=== PATIENT | male | born 1970 | race Caucasian/White ===

== ENCOUNTER 2017-03-17 22:03 | Observation (INO) | payer BC ==
--- NOTE | 2017-03-17 23:22 | PDOC ---
History of Present Illness - History of Present Illness Initial Comments: 03/17/17 23:23 Mr. Harrell is a 46 yo male with a significant past medical history of Panic Attacks with chronic back pain from 2 bulging discs who presents to the emergency department complaining of chest tightness midline with previous sweating and nausea. The patient denies shortness of breath, headache and dizziness. Denies fever, chills, vomit, diarrhea and constipation. Denies dysuria, frequency, urgency and hematuria. Allergies: NKDA Past surgical history: Denies <Phillip Vela - Last Filed: 03/18/17 00:09> <Nehemiah Rod - Last Filed: 03/18/17 01:37> - General Chief Complaint: Pain Stated Complaint: CHEST PAIN Time Seen by Provider: 03/17/17 23:14 Past History - Past Medical History Psychiatric Problems: Yes (Anxiety) Other medical history: Herniated disc - Immunization History Immunization Up to Date: Yes - Suicide/Smoking/Psychosocial Hx Smoking History: Never smoked Have you smoked in the past 12 months: No Number of Cigarettes Smoked Daily: 0 Cigars Per Day: 0 Information on smoking cessation initiated: No Hx Alcohol Use: No Drug/Substance Use Hx: No Substance Use Type: None <Phillip Vela - Last Filed: 03/18/17 00:09> <Nehemiah Rod - Last Filed: 03/18/17 01:37> - Past Medical History Allergies/Adverse Reactions: Allergies Allergy/AdvReac Type Severity Reaction Status Date / Time No Known Allergies Allergy Verified 03/17/17 22:10 Home Medications: Ambulatory Orders Albuterol Sulfate Inhaler - [Ventolin HFA Inhaler -] 2 inh PO Q4H #1 inh Ibuprofen [Motrin -] 600 mg PO TID #21 tablet 06/14/14 Loratadine/Pseudoephedrine [Claritin-D 12 Hour Tab SA] 1 tab PO BID #14 tab.er.12h 06/14/14 Review of Systems - Review of Systems Comments:: 03/17/17 23:51 GENERAL/CONSTITUTIONAL: +Prior diaphoresis today. No fever or chills. No weakness. HEAD, EYES, EARS, NOSE AND THROAT: No change in vision. No ear pain or discharge. No sore throat. CARDIOVASCULAR: +Midline chest pain that feels "tight" like "an elephant is sitting on [his] chest" and 5/10 pain. RESPIRATORY: No cough, wheezing, or hemoptysis. GASTROINTESTINAL: +Nausea earlier today, No vomiting, diarrhea or constipation. GENITOURINARY: No dysuria, frequency, or change in urination. MUSCULOSKELETAL: No joint or muscle swelling or pain. No neck or back pain. SKIN: No rash NEUROLOGIC: No headache, vertigo, loss of consciousness, or change in strength/ sensation. ENDOCRINE: No increased thirst. No abnormal weight change HEMATOLOGIC/LYMPHATIC: No anemia, easy bleeding, or history of blood clots. ALLERGIC/IMMUNOLOGIC: No hives or skin allergy. <Phillip Vela - Last Filed: 03/18/17 00:09> *Physical Exam - Vital Signs Last Vital Signs Temp Pulse Resp BP Pulse Ox 98.7 F 63 18 143/78 98 03/17/17 22:10 03/17/17 22:10 03/17/17 22:10 03/17/17 22:10 03/17/17 22:10 - Physical Exam Comments: 03/17/17 23:51 GENERAL: Awake, alert, and fully oriented, in no acute distress HEAD: No signs of trauma, normocephalic, atraumatic EYES: PERRLA, EOMI, sclera anicteric, conjunctiva clear ENT: Auricles normal inspection, hearing grossly normal, nares patent, oropharynx clear without exudates. Moist mucosa NECK: Normal ROM, supple, no lymphadenopathy, JVD, or masses LUNGS: No distress, speaks full sentences, clear to auscultation bilaterally HEART: +Patient's chest tender to palpation midline. Regular rate and rhythm, normal S1 and S2, no murmurs, rubs or gallops, peripheral pulses normal and equal bilaterally. ABDOMEN: Soft, nontender, normoactive bowel sounds. No guarding, no rebound. No masses EXTREMITIES: Normal inspection, Normal range of motion, no edema. No clubbing or cyanosis. NEUROLOGICAL: Cranial nerves II through XII grossly intact. Normal speech, normal gait, no focal sensorimotor deficits SKIN: Warm, Dry, normal turgor, no rashes or lesions noted. <Phillip Vela - Last Filed: 03/18/17 00:09> - Vital Signs Last Vital Signs Temp Pulse Resp BP Pulse Ox 98.7 F 63 18 143/78 98 03/17/17 22:10 03/17/17 22:10 03/17/17 22:10 03/17/17 22:10 03/17/17 22:10 <MarcelNehemiah - Last Filed: 03/18/17 01:37> Heart Score/ECG Review - History History: Moderately suspicious - Electrocardiogram EKG: Normal - Age Age: 45-65 - Risk Factors Based on the list above the patient has:: No risk factors known - Troponin Troponin: </= normal limit - Score Heart Score - Total: 2 <Nehemiah Rod - Last Filed: 03/18/17 01:37> ED Treatment Course - LABORATORY CBC & Chemistry Diagram: 03/18/17 00:04 03/18/17 00:04 <Phillip Vela - Last Filed: 03/18/17 00:09> - LABORATORY CBC & Chemistry Diagram: 03/18/17 00:04 03/18/17 00:04 - ADDITIONAL ORDERS Additional order review: Laboratory Results 03/18/17 03/18/17 00:04 00:04 Sodium 139 Potassium 3.5 Chloride 103 Carbon Dioxide 27 Anion Gap 9 BUN 15 D Creatinine 0.8 Creat Clearance w eGFR > 60 Random Glucose 94 Calcium 8.4 L Total Bilirubin 0.3 D AST 28 D ALT 57 D Alkaline Phosphatase 68 Creatine Kinase 125 Troponin I < 0.02 Total Protein 7.5 Albumin 3.5 03/18/17 00:04 RBC 4.13 MCV 94.2 MCHC 34.2 RDW 13.7 MPV 8.2 Neutrophils % 55.7 Lymphocytes % 30.6 Monocytes % 10.3 H Eosinophils % 2.3 Basophils % 1.1 - RADIOLOGY Radiology Studies Ordered: Category Date Time Status CHEST X-RAY PORTABLE* [RAD] Stat Radiology 03/18/17 00:13 Taken - Medications Given in the ED: ED Medications Discontinued Medications Generic Name Dose Route Start Last Admin Trade Name Freq PRN Reason Stop Dose Admin Aspirin 325 mg 03/17/17 23:38 03/18/17 00:21 Asa - PO 03/17/17 23:39 325 mg ONCE ONE Administration Nitroglycerin 0.4 mg 03/17/17 23:38 03/18/17 00:20 Nitrostat - SL 03/17/17 23:39 0.4 mg ONCE ONE Administration Nitroglycerin 1 inch 03/18/17 00:31 03/18/17 00:57 Nitro-Bid 2% Paste - TD 03/18/17 00:32 1 inch ONCE ONE Administration <Nehemiah Rod - Last Filed: 03/18/17 01:37> Medical Decision Making - Medical Decision Making 03/18/17 00:09 Patient signed out to Dr. Rod for further care. <Phillip Vela - Last Filed: 03/18/17 00:09> *DC/Admit/Observation/Transfer <Phillip Vela - Last Filed: 03/18/17 00:09> - Discharge Dispostion Admit: Yes <Nehemiah Rod - Last Filed: 03/18/17 01:37> Diagnosis at time of Disposition: Chest pain Qualifiers: Chest pain type: unspecified Qualified Code(s): R07.9 - Chest pain, unspecified - Discharge Dispostion Condition at time of disposition: Fair - Referrals Referrals: Jas Pride [Primary Care Provider] -
[2017-03-17] MEDS ORDERED: NITROGLYCERIN SUBLINGUAL 1/150 0.4 MG TAB SL ONE (23:38)
[2017-03-17] MEDS ORDERED: ASPIRIN 325 MG TABLET PO ONE (23:38)
[2017-03-18 00:09] LABS: BASOPHIL 1.1 % (0-2.0); EOSINOPHIL 2.3 % (0-4.5); MCH 32.2 pg (25.7-33.7); MCHC 34.2 g/dl (32.0-35.9); MEAN CELL VOLUME 94.2 fl (80-96); MEAN PLT VOLUME 8.2 fl (7.5-11.1); NEUTROPHILS 55.7 % (42.8-82.8); PLATELET COUNT 281 K/MM3 (134-434); RDW 13.7 % (11.9-15.9); WHITE BLOOD COUNT 6.3 K/mm3 (4.0-10.0)
[2017-03-18] MEDS ORDERED: ASPIRIN 325 MG TABLET ONE (00:13)
[2017-03-18] MEDS ORDERED: NITROGLYCERIN SUBLINGUAL 1/150 0.4 MG TAB ONE (00:14)
[2017-03-18] MEDS ORDERED: NITROGLYCERIN 2% OINTMENT - 1GM PACKET TD ONE ×2 (00:31→00:51)
[2017-03-18 00:34] LABS: ALBUMIN 3.5 g/dl (3.4-5.0); ALK PHOS 68 U/L (45-117); ANION GAP 9 (8-16); BILIRUBIN,TOTAL 0.3 mg/dL (0.2-1.0); CALCIUM 8.4 mg/dL (8.5-10.1); CO2 27 mmol/L (21-32); CREATININE 0.8 mg/dL (0.7-1.3); GLUCOSE,RANDOM 94 mg/dL (74-106); SGOT/AST 28 U/L (15-37); SGPT/ALT 57 U/L (12-78); TOT PROT 7.5 g/dl (6.4-8.2)
[2017-03-18 00:36] LABS: CPK 125 IU/L (39-308); TROPONIN I < 0.02 ng/ml (0.00-0.05)
--- NOTE | 2017-03-18 01:04 | PDOC ---
Attending Attestation - Resident Resident Name: GeoffblaisemathewBenPhillip - ED Attending Attestation I have performed the following: I have examined & evaluated the patient, The case was reviewed & discussed with the resident, I agree w/resident's findings & plan, Exceptions are as noted - HPI HPI: 03/18/17 01:02 46-year-old male with history of panic attacks presents to the ER with atraumatic, nonpleuritic midsternal chest pain since earlier in the day. - Physicial Exam PE: 03/18/17 01:02 Patient is awake and alert, afebrile, nontoxic appearing, hemodynamically stable. CONSTITUTIONAL: Awake and alert; well-nourished; in no apparent distress HEAD: Normocephalic; atraumatic EYES: PERRL; EOM intact ENMT: External appears normal; normal oropharynx NECK: Supple; non-tender; no JVD CARD: Normal S1, S2; no murmurs, rubs, or gallops; + mild left parasternal tenderness to palpation which the patient states is different from his underlying symptoms; RESP: Normal chest excursion with respiration; breath sounds clear and equal bilaterally; no wheezes, rhonchi, or rales ABD: Soft, non-distended; non-tender; no palpable organomegaly, no palpable hernias EXT: Normal ROM in all four extremities; non-tender to palpation; distal pulses intact SKIN: Warm, dry, no rash NEURO: No focal neurological deficiencies. - Medical Decision Making 03/18/17 01:03 46-year-old male with no previous medical history presents to the ER with midsternal chest discomfort associated with dizziness, diaphoresis and mild shortness of breath. I suspect ACS. EKG is within normal limit. PE is unlikely as patient's satisfies all PERC criteria. We'll obtain CBC/CMP/cardiac profile/ chest x-ray. We'll administer aspirin and nitroglycerin. Will reassess. 03/18/17 01:35 Patient reassessed. Patient is resting comfortably, his pain has improved after administration of nitroglycerin. First set of cardiac enzymes is within normal limit. Chest x-ray reveals no evidence of cardiomegaly or widened mediastinum. Patient's heart score is noted to be 2. Patient will be placed in observation for serial cardiac enzymes.
[2017-03-18] MEDS ORDERED: ALBUTEROL SO4 2.5/IPRATROPIUM 0.5 INH SOL 3 ML VIAL.NEB. NEB PRN (02:54)
[2017-03-18] MEDS ORDERED: ACETAMINOPHEN 325 MG TABLET (FP) PO PRN (03:00)
[2017-03-18] MEDS ORDERED: ONDANSETRON 4 MG/2 ML VIAL IVPB PRN (03:01)
[2017-03-18 03:11] VITALS: BMI 27.6
[2017-03-18] MEDS ORDERED: NITROGLYCERIN SUBLINGUAL 1/150 0.4 MG TAB SL PRN (03:49)
--- NOTE | 2017-03-18 03:49 | HP ---
Admitting History and Physical - Admission Chief Complaint: cp History of Present Illness: 46 yo m w hx of anxiety, hlp, chronic LBP, herniated discs who present to the er for evaluation of cp. pt reprots pain began around 7pm yesterday. he reports having sharp, 9/10 pain with radiation from midsternum to left chest wall. he reports pain lasts for a couple hours until getting to the er and receiving sl ntg and po asa. he reports having some associated sob, sweating and numbness in left arm. he endorses eckert earlier in the day while walking up a hill. he denies associated nausea, jaw claudication, syncope (true or near).he reports having anxiety attacks in the past with chest discomfort but this is unlike previous experiences. but he reports he fell a few months ago while and hurt his left shoulder. he reports he has had personal stressors over the last several months related to finances and his job. he states he hurt his back on his job last year and is going to pain management getting injections. He denies dysuria, f/c/ v body aches, cough, sore throat. He reports getting over the flu 1.5 weeks ago. he denies sick contacts, or recent travel. he denies orthopnea. pmh/psh- anxiety, hlp, chronic LBP, herniated discs social- occ drinker, denies rec drugs famhx- mom hlp ros neg except for hpi pcp dr alston pain management dr young ([facility]) pex gen - in nad, alert hent- at/nc, max, neck supple, trachea midline resp- lungs ctab, no cyanosis, no cough, no ronchi cards- no jvd, no leg edema, rrr, extremity pulses +2, gi- bs + normoactive, no distention, no rigidity, no guarding musk- normal bue/ble arom psych- calm no agitation, no restlessness, cooperative skin- no erythema, no lesions prob list cp anxiety lbp hlp imaging ekg reviewed cxr pending a/p- 46 yo m w hx of anxiety, hlp, chronic LBP, herniated discs who present to the er for evaluation of cp 1. cp acs r/o ?anxiety reports multiple life stressors involving work and finances given sl ntg and 325mg asa in er 1st trop neg ekg sinus liza, neg ischemia f/u trops cxr pending cardiac tele 2. anxiety d/o cont home meds 3. hlp reports diet, and natural supplement use previously on statin 4. chronic LBP, herniated discs following pain management dr young opt for injections reports taking tramadol prn and lidocaine patch 5% dvt prophy scd, oob, expect < 48h fen low chol diet dispo- likely d/c home in am. acs r/o History Source: Patient Limitations to Obtaining History: No Limitations - Smoking History Smoking history: Never smoked Have you smoked in the past 12 months: No Aproximately how many cigarettes per day: 0 - Alcohol/Substance Use Hx Alcohol Use: No Home Medications - Allergies Allergies/Adverse Reactions: Allergies Allergy/AdvReac Type Severity Reaction Status Date / Time No Known Allergies Allergy Verified 03/17/17 22:10 - Home Medications Home Medications: Ambulatory Orders Albuterol Sulfate Inhaler - [Ventolin HFA Inhaler -] 2 inh PO Q4H #1 inh Ibuprofen [Motrin -] 600 mg PO TID #21 tablet 06/14/14 Loratadine/Pseudoephedrine [Claritin-D 12 Hour Tab SA] 1 tab PO BID #14 tab.er.12h 06/14/14 Physical Examination Vital Signs: Vital Signs Temperature 98.3 F 03/18/17 02:58 Pulse Rate 51 L 03/18/17 02:58 Respiratory Rate 18 03/18/17 02:58 Blood Pressure 122/72 03/18/17 02:58 O2 Sat by Pulse Oximetry (%) 100 03/18/17 02:22 Visit type - Emergency Visit Emergency Visit: Yes ED Registration Date: 03/18/17 Care time: The patient presented to the Emergency Department on the above date and was hospitalized for further evaluation of their emergent condition. - New Patient This patient is new to me today: Yes Date on this admission: 03/18/17 - Critical Care Critical Care patient: No
[2017-03-18] MEDS ORDERED: traMADol HCL 50 MG TABLET PO PRN (04:00)
[2017-03-18 07:03] LABS: ANION GAP 8 (8-16); CALCIUM 8.7 mg/dL (8.5-10.1); CO2 28 mmol/L (21-32); CREATININE 0.8 mg/dL (0.7-1.3); GLUCOSE,RANDOM 86 mg/dL (74-106)
[2017-03-18 07:06] LABS: TROPONIN I < 0.02 ng/ml (0.00-0.05)
[2017-03-18 07:22] LABS: BASOPHIL 0.8 % (0-2.0); EOSINOPHIL 2.4 % (0-4.5); MCH 31.7 pg (25.7-33.7); MCHC 33.2 g/dl (32.0-35.9); MEAN CELL VOLUME 95.4 fl (80-96); MEAN PLT VOLUME 8.5 fl (7.5-11.1); NEUTROPHILS 50.5 % (42.8-82.8); PLATELET COUNT 263 K/MM3 (134-434); RDW 14.1 % (11.9-15.9); WHITE BLOOD COUNT 6.1 K/mm3 (4.0-10.0)
[2017-03-18] MEDS: ASPIRIN COATED 81 MG TABLET.EC PO SCH (09:47)
[2017-03-18] MEDS: LIDOCAINE 5% TOPICAL PATCH TP SCH (09:47)
--- NOTE | 2017-03-18 11:19 | CON.CARD ---
Cardiology Consult (text) - Consultation Consultation Note: CC: cp 46 yo with h/o hl (self-discontinued statin), anxiety, chronic LBP, herniated discs who p/w cp. Pain started acutely when walking uphill on the way to a store. radiated to left arm. Associated with sob/eckert, lightheadedness, diaphoresis, palps. Pain was severe and lasted about 5 hours. Improved with NTG in the ER. Worsened by exertion such as walking upstairs. Worsened by lying flat on his back and improved when sitting forward. No pleuritic component. Similar pain to prior discomfort from history of panic attacks, but prior discomfort was not this severe and not associated with any other symptoms. Increased stress lately. Recent cold last week with diarrhea. No recent nsaid use. Recent trip to the [facility] and subsequent LE edema L> R, now slightly improved. He f/c/s, cough, congestion, n/v this week. + diarrhea this week. denies rashes, h/a, visual disturbances no orthponea, pnd, claudication, bleeding. pmh/psh- anxiety, hlp, chronic LBP, herniated discs social- occ drinker, denies rec drugs, former smoker, no illicits famhx- estranged from family, minimal hx. sister may have had aneurysm. ros : per hpi Ambulatory Orders Albuterol Sulfate Inhaler - [Ventolin HFA Inhaler -] 2 inh PO Q4H #1 inh Ibuprofen [Motrin -] 600 mg PO TID #21 tablet 06/14/14 Loratadine/Pseudoephedrine [Claritin-D 12 Hour Tab SA] 1 tab PO BID #14 tab.er.12h 06/14/14 Current Medications Acetaminophen (Tylenol -) 650 mg PO Q4H PRN PRN Reason: FEVER OR PAIN Albuterol/Ipratropium (Duoneb -) 1 amp NEB Q4H PRN PRN Reason: SHORTNESS OF BREATH Aspirin (Ecotrin -) 81 mg PO DAILY [facility] Last Admin: 03/18/17 09:47 Dose: 81 mg Lidocaine (Lidoderm Patch -) 1 patch TP DAILY [facility] Last Admin: 03/18/17 09:47 Dose: 1 patch Miscellaneous (Lidoderm Patch Removal) 1 each MC DAILY@2200 [facility] Nitroglycerin (Nitrostat -) 0.4 mg SL Q5M PRN PRN Reason: FOR CHEST PAIN Ondansetron HCl (Zofran Injection) 4 mg IVPB Q4H PRN PRN Reason: NAUSEA AND/OR VOMITING Tramadol HCl (Ultram -) 50 mg PO Q8H PRN PRN Reason: PAIN Vital Signs - 24 hr 03/17/17 03/18/17 03/18/17 22:10 00:00 01:47 Temperature 98.7 F Pulse Rate 63 Pulse Rate [ 64 52 L Apical] Respiratory 18 17 16 Rate Blood Pressure 143/78 Blood Pressure 117/74 120/80 [Left Arm] O2 Sat by Pulse 98 100 100 Oximetry (%) 03/18/17 03/18/17 03/18/17 02:22 02:58 06:00 Temperature 98.3 F 97.9 F Pulse Rate 51 L 51 L Pulse Rate [ 51 L Apical] Respiratory 16 18 18 Rate Blood Pressure 122/72 123/62 Blood Pressure 117/61 [Left Arm] O2 Sat by Pulse 100 Oximetry (%) Intake & Output 03/16/17 03/17/17 03/18/17 03/19/17 07:59 07:59 07:59 07:59 Intake Total 10 Balance 10 Weight 215 lb 6.4 oz nad, calm jvd flat, neck supple ctab, nl effort rrr nl s1, s2 no mrg ? rub + bs soft nt nd trace LE edema, no cyanosis or clubbing no jaundice, diaphoresis aaox3 no carotid bruits CBC, BMP 03/18/17 05:10 03/18/17 05:10 Laboratory Tests 03/18/17 03/18/17 03/18/17 00:04 00:04 05:10 Total Bilirubin 0.3 D AST 28 D ALT 57 D Alkaline Phosphatase 68 Troponin I < 0.02 < 0.02 Albumin 3.5 TSH 03/18/17 03/18/17 05:10 12:04 Total Bilirubin AST ALT Alkaline Phosphatase Troponin I < 0.02 Albumin TSH 4.50 H cxr: weaker inspiration. possible new congestive changes and heavy markings at left base. ekg: sb 56 bpm. subtle upsloping maricruz diffusely. possible pr depression in inferolateral leads. pericarditis vs. early repolarization tele: sb/sr 50's-60's. 46 yo with h/o hl (self-discontinued statin), anxiety, chronic LBP, herniated discs who p/w cp. CP h/o hl - typical angina in quality and response to ntg. also with clinical presentation that could be c/w pericarditis. CE's neg x 3. Ekg without ischemic changes. - cxr ? congestion - echo to evaluate for effusion or structural abnormalities. nuclear stress in am. ESR/crp to further assess for pericarditis. - Patient also with recent travel and ? LE edema (now improved). d-dimer to screen for PE. - con't asa, will add statin. - further evaluation of thyroid abnormalities per pmd.
[2017-03-18] MEDS ORDERED: POTASSIUM CHLORIDE TABS 20 MEQ TABLET.ER (FP) PO ONE (11:45)
--- NOTE | 2017-03-18 16:01 | EKG ---
Test Reason : Blood Pressure : / mmHG Vent. Rate : 056 BPM Atrial Rate : 056 BPM P-R Int : 148 ms QRS Dur : 092 ms QT Int : 410 ms P-R-T Axes : 054 038 034 degrees QTc Int : [address] ELEVATION, CONSIDER EARLY REPOLARIZATION COMPARED TO 17 MAR 2017 CHANGES MENTIONED ABOVE CORELATE CLINICALLY Confirmed by RYAN BUSTAMANTE MD ([id number]) on 03/18/2017 4:01:23 PM Referred By: Confirmed By:RYAN BUSTAMANTE MD
--- NOTE | 2017-03-18 18:30 | HOSP ---
Physical Examination Vital Signs: Vital Signs Temperature 98.6 F 03/18/17 14:00 Pulse Rate 59 L 03/18/17 14:00 Respiratory Rate 20 03/18/17 14:00 Blood Pressure 121/68 03/18/17 14:00 O2 Sat by Pulse Oximetry (%) 100 03/18/17 09:00 Eyes: Yes: Conjunctiva Clear Cardiovascular: Yes: Regular Rate and Rhythm Respiratory: Yes: Regular, CTA Bilaterally Gastrointestinal: Yes: Normal Bowel Sounds, Soft Edema: Yes (trace ankle edema ) Integumentary: Yes: WNL Neurological: Yes: Alert, Oriented, Cran Nerves II-XII Intact Psychiatric: Yes: Other (depressed affect,) Labs: CBC, BMP 03/18/17 05:10 03/18/17 05:10 Hospitalist Encounter Assessment: Assessment: 46 year old male with hx of anxiety, hlp, chronic LBP, herniated discs admitted with chest pain Plan: 1. Chest pain - Serial trops negative - ECHO in AM - ASA daily - NPO for possible stress - Check lipid panel - Cardiology seeing 2. Sinus Bradycardia - Asymptomatic 3. HLD - Previously on statin - Reports diet, and natural supplement use 4. Chronic LBP, herniated discs - Following pain management dr young opt for injections - Tramadol PRN - Lidocaine patch 5%
[2017-03-18] MEDS ORDERED: LIDOCAINE PATCH REMOVAL MC SCH (22:00)
[2017-03-19 07:28] LABS: ANION GAP 6 (8-16); CALCIUM 8.8 mg/dL (8.5-10.1); CHOLESTEROL 224 mg/dL (50-200); CO2 28 mmol/L (21-32); CREATININE 0.7 mg/dL (0.7-1.3); GLUCOSE,RANDOM 88 mg/dL (74-106); MAGNESIUM 2.3 mg/dL (1.8-2.4)
[2017-03-19 10:30] LABS: FREE T4 0.92 ng/dl (0.76-1.16)
[2017-03-19 10:33] LABS: C-REACTIVE PROTEIN < 0.3 MG/DL (0.00-0.3)
[2017-03-19] MEDS: LIDOCAINE 5% TOPICAL PATCH TP SCH (12:01)
[2017-03-19] MEDS: ASPIRIN COATED 81 MG TABLET.EC PO SCH (12:01)
--- NOTE | 2017-03-19 15:16 | PN ---
Progress Note (short form) - Note Progress Note: CC: cp S: d dimer elevated so chest cta ordered. patient also had echo and stress test today. no further episodes of CP. no sob, palps, dizziness. Current Medications Acetaminophen (Tylenol -) 650 mg PO Q4H PRN PRN Reason: FEVER OR PAIN Last Admin: 03/18/17 16:27 Dose: 650 mg Albuterol/Ipratropium (Duoneb -) 1 amp NEB Q4H PRN PRN Reason: SHORTNESS OF BREATH Aspirin (Ecotrin -) 81 mg PO DAILY [facility] Last Admin: 03/19/17 12:01 Dose: 81 mg Atorvastatin Calcium (Lipitor -) 40 mg PO HS [facility] Lidocaine (Lidoderm Patch -) 1 patch TP DAILY [facility] Last Admin: 03/19/17 12:01 Dose: 1 patch Miscellaneous (Lidoderm Patch Removal) 1 each MC DAILY@2200 [facility] Last Admin: 03/19/17 00:00 Dose: 1 each Nitroglycerin (Nitrostat -) 0.4 mg SL Q5M PRN PRN Reason: FOR CHEST PAIN Ondansetron HCl (Zofran Injection) 4 mg IVPB Q4H PRN PRN Reason: NAUSEA AND/OR VOMITING Tramadol HCl (Ultram -) 50 mg PO Q8H PRN PRN Reason: PAIN Vital Signs - 24 hr 03/18/17 03/18/17 03/18/17 18:00 20:28 22:00 Temperature 98.5 F 98.6 F Pulse Rate 67 76 Respiratory 19 18 16 Rate Blood Pressure 139/70 113/77 O2 Sat by Pulse 100 Oximetry (%) 03/19/17 03/19/17 03/19/17 02:00 08:00 09:00 Temperature 97.7 F 98.1 F Pulse Rate 54 L 57 L Respiratory 18 18 Rate Blood Pressure 104/75 130/88 O2 Sat by Pulse 99 Oximetry (%) 03/19/17 03/19/17 12:04 14:05 Temperature 98.5 F 98.2 F Pulse Rate 78 75 Respiratory 18 18 Rate Blood Pressure 129/84 144/69 O2 Sat by Pulse Oximetry (%) Intake & Output 03/17/17 03/18/17 03/19/17 03/20/17 07:59 07:59 07:59 07:59 Intake Total 10 100 400 Balance 10 100 400 Weight 215 lb 6.4 oz nad, anxious jvd flat, neck supple ctab, nl effort rrr nl s1, s2 no mrg ? rub + bs soft nt nd trace LE edema, no cyanosis or clubbing no jaundice, diaphoresis aaox3 no carotid bruits CBC, BMP 03/18/17 05:10 03/19/17 06:20 Laboratory Tests 03/19/17 03/19/17 03/19/17 06:20 06:20 06:20 ESR 18 H D-Dimer 261 H Magnesium 2.3 C-Reactive Protein < 0.3 Triglycerides 146 Cholesterol 224 H Total LDL Cholesterol 148 H HDL Cholesterol 40 Free T4 0.92 ekg: sb 56 bpm. subtle upsloping maricruz diffusely. possible pr depression in inferolateral leads. pericarditis vs. early repolarization tele: sb/sr 50's overnight. cxr: weaker inspiration. possible new congestive changes and heavy markings at left base. chest cta: No PE. bibasilar atelectasis. no aortic aneurysm or dissection. echo: nl lv/rv. mod ar, mild ao dilation, no pericardial effusion. stress test: 10.1 METS. phr achieved. no ischemic ekg changes. pvc's and ventricular couplets seen. small/subtle apical fixed defect consistent with soft tissue attenuation. no ischemia/infarction. EF nl 54%. A/P 46 yo with h/o hl (self-discontinued statin), anxiety, chronic LBP, herniated discs who p/w cp. CP with h/o hl - typical angina in quality and response to ntg. also with clinical presentation that could be c/w pericarditis. CE's neg x 3. Ekg without ischemic changes. - ESR/d dimer elevated. EKG could be c/w pericarditis. Consider treating empirically for pericarditis ONLY IF patient has ongoing chest discomfort. Would d/c home with ibuprofen 800 mg tid x 2 weeks followed by 1 week taper. colchicine 0.6 mg bid to prevent recurrence. PPI for GI protection. to be taken only if patient is symptomatic. If patient does NOT have recurrence of CP he can defer starting this regimen. - stress test negative for ischemia, can d/c asa. Patient would like to defer statin, can further discuss as outpatient. - mod AR will need to be monitored with routine echo surveillance. Not likely to be causing his sx's. - has f/u with therapist for anxiety. Can follow up with our office in 1-2 months for further management.
[2017-03-19] MEDS ORDERED: ALPRAZolam 0.25 MG TABLET PO ONE (15:48)
--- NOTE | 2017-03-19 17:44 | DS ---
Physical Exam: SUBJECTIVE: Patient seen and examined OBJECTIVE: Vital Signs Period Temp Pulse Resp BP Sys/Granado Pulse Ox Last 24 Hr 97.7 F-98.6 F 54-78 16-19 104-144/69-88 99-100 PHYSICAL EXAM GENERAL: The patient is awake, alert, and fully oriented, in no acute distress. HEAD: Normal with no signs of trauma. EYES: PERRL, extraocular movements intact, sclera anicteric, conjunctiva clear. ENT: Ears normal, nares patent, oropharynx clear without exudates, moist mucous membranes. NECK: Trachea midline, full range of motion, supple. LUNGS: Breath sounds equal, clear to auscultation bilaterally, no wheezes, no crackles, no accessory muscle use. HEART: Regular rate and rhythm, S1, S2 without murmur, rub or gallop. ABDOMEN: Soft, nontender, nondistended, normoactive bowel sounds, no guarding, no rebound, no hepatosplenomegaly, no masses. EXTREMITIES: 2+ pulses, warm, well-perfused, no edema. NEUROLOGICAL: Cranial nerves II through XII grossly intact. Normal speech, gait not observed. PSYCH: Normal mood, normal affect. SKIN: Warm, dry, normal turgor, no rashes or lesions noted. LABS Laboratory Results - last 24 hr 03/19/17 03/19/17 03/19/17 06:20 06:20 06:20 ESR 18 H D-Dimer Sodium 138 Potassium 3.5 Chloride 104 Carbon Dioxide 28 Anion Gap 6 L BUN 11 Creatinine 0.7 Random Glucose 88 Calcium 8.8 Magnesium 2.3 C-Reactive Protein < 0.3 Cancelled Triglycerides 146 Cholesterol 224 H Total LDL Cholesterol 148 H HDL Cholesterol 40 Free T4 0.92 Cancelled 03/19/17 06:20 ESR D-Dimer 261 H Sodium Potassium Chloride Carbon Dioxide Anion Gap BUN Creatinine Random Glucose Calcium Magnesium C-Reactive Protein Triglycerides Cholesterol Total LDL Cholesterol HDL Cholesterol Free T4 HOSPITAL COURSE: Date of Admission:03/18/17 Date of Discharge: 03/19/17 Discharge Summary Reason For Visit: CHEST PAIN Current Active Problems Chest pain (Acute) Condition: Improved - Instructions Diet, Activity, Other Instructions: Please return to the ED with new, persistent, or worsening symptoms. Please follow-up with providers as indicated. If symptoms return, START taking Ibuprofen 800 mg by mouth three times a day for 2 weeks followed by a taper per cardiology, colchicine 0.6 mg by mouth twice a day, and Protonix 40mg by mouth daily. Referrals: Kera Azar MD [Staff Physician] - (Please follow-up with Dr. Azar within 1 week to have your CRP (C-reactive protein) checked and for recommendations on how and when to taper the ibuprofen.) Jas Pride [Primary Care Provider] - 1 Week Disposition: HOME - Home Medications Comprehensive Discharge Medication List: Ambulatory Orders Albuterol Sulfate Inhaler - [Ventolin HFA Inhaler -] 2 inh PO Q4H #1 inh Loratadine/Pseudoephedrine [Claritin-D 12 Hour Tab SA] 1 tab PO BID #14 tab.er.12h 06/14/14 Colchicine 0.6 mg PO BID #60 capsule 03/19/17 Ibuprofen [Motrin -] 800 mg PO TID #120 tablet 03/19/17 Pantoprazole Sodium [Protonix] 40 mg PO DAILY #30 tablet. 03/19/17
[2017-03-19 18:11] VITALS: BP 125/69; PULSE 64; TEMP 98
[2017-03-19] MEDS ORDERED: ATORVASTATIN CA 40 MG TABLET (FP) PO SCH (22:00)
--- NOTE | 2017-03-23 09:19 | EKG ---
Test Reason : Blood Pressure : / mmHG Vent. Rate : 058 BPM Atrial Rate : 058 BPM P-R Int : 150 ms QRS Dur : 090 ms QT Int : 396 ms P-R-T Axes : 056 030 031 degrees QTc Int : 388 ms SINUS BRADYCARDIA WHEN COMPARED WITH ECG OF 14-JUN-2014 02:57, NO SIGNIFICANT CHANGE WAS FOUND Confirmed by CINDY WALTON MD ([id number]) on 03/23/2017 9:19:03 AM Referred By: Confirmed By:CINDY WALTON MD
== END 2017-03-19 18:30 | disposition home or self-care (01) ==
LOC: JER 22:03 → JERBED 03-18 01:37 → UNDOADMOB 03-18 01:39 → JERBED 03-18 01:39 → J4W 03-18 02:59
PROVIDERS: ADMIT Internal Medicine; ATTEND Registered Nurse
DX: R07.9 Chest pain, unspecified (principal); F41.0 Panic disorder [episodic paroxysmal anxiety]; M54.5 Low back pain; G89.29 Other chronic pain; R00.1 Bradycardia, unspecified; M51.26 Other intervertebral disc displacement, lumbar region
CPT/HCPCS: 36415; 71010-TC; 71275-TC; 78452-TC; 80048; 80053; 80061; 83721; 83735; 84439; 84443; 84484; 85025; 85379; 85651; 86140; 93005; 93010; 93017; 93306-TC; 93970-TC; 99283-25; A9502; G0378

== ENCOUNTER 2018-11-03 12:25 | Emergency (ER) | payer OTHER, BC | END 2018-11-03 13:38 | disposition home or self-care (01) | LOC: JERFT 12:25 ==

== ENCOUNTER 2019-07-22 17:37 | Observation (INO) | payer BC ==
--- NOTE | 2019-07-22 17:51 | PDOC ---
Rapid Medical Evaluation Time Seen by Provider: 07/22/19 17:46 Medical Evaluation: Allergies Allergy/AdvReac Type Severity Reaction Status Date / Time No Known Allergies Allergy Verified 07/22/19 17:46 07/22/19 17:46 Pt with PMH of pericarditis presents to the ER for chest pain and nausea starting last night. States the pain radiates to his jaw and neck. States the pain has been constant today. States that breathing makes the pain worse. Exam: TTP of the chest wall, Heart: RRR, S1S2 present without m/r/g. Lungs CTAB Orders: Cardiac work up Pt to proceed to the ER for further evaluation 07/22/19 17:51 Discharge Disposition - Diagnosis Chest pain - Referrals - Patient Instructions - Post Discharge Activity
[2019-07-22 17:56] VITALS: BMI 30.3
[2019-07-22 18:34] LABS: BASO % 0.9 % (0-2.0); HEMATOCRIT 41.1 % (35.4-49); HEMOGLOBIN 14.1 GM/dL (11.7-16.9); LYMPH % 29.4 % (8-40); MCH 32.7 pg (25.7-33.7); MCHC 34.3 g/dl (32.0-35.9); MEAN CELL VOLUME 95.4 fl (80-96); MEAN PLT VOLUME 8.5 fl (7.5-11.1); MONO % 13.6 % (3.8-10.2); NEUT % 54.1 % (42.8-82.8); PLATELET COUNT 293 K/MM3 (134-434); RBC 4.32 M/mm3 (4.00-5.60); RDW 14.1 % (11.9-15.9)
[2019-07-22 18:57] LABS: ALBUMIN 3.8 g/dl (3.4-5.0); BILIRUBIN,TOTAL 0.5 mg/dL (0.2-1); BLOOD UREA NITROGEN 14.5 mg/dL (7-18); CALCIUM 9.2 mg/dL (8.5-10.1); CREATININE 0.9 mg/dL (0.55-1.3); MAGNESIUM 2.1 mg/dL (1.8-2.4); POTASSIUM 3.9 mmol/L (3.5-5.1); TOT PROT 8.3 g/dl (6.4-8.2)
--- NOTE | 2019-07-22 19:54 | PDOC ---
History of Present Illness - General Chief Complaint: Chest Pain Stated Complaint: CHEST PAIN/ELEVATED B/P R/ARM NUMBNESS Time Seen by Provider: 07/22/19 17:46 History Source: Patient - History of Present Illness Initial Comments: 07/22/19 20:24 48-year-old male complaining of midsternal chest pain since last night at 10 PM. Patient reports that he took 1 dose of aspirin with some symptom relief. Today with similar symptoms (chest pain, SOB, dizziness, nausea in addition has occipital headache and right arm numbness. Denies taking any medication at home. Patient reports that 2 years ago he was diagnosed with pericarditis and symptoms similar to that at this time. Patient has a past medical history of hyperlipidemia, hyper tension which is controlled with diet. 07/22/19 20:33 Past History - Past Medical History Allergies/Adverse Reactions: Allergies Allergy/AdvReac Type Severity Reaction Status Date / Time No Known Allergies Allergy Verified 07/22/19 17:46 Home Medications: Ambulatory Orders Duloxetine HCl [Cymbalta] 20 mg PO BID 07/22/19 Gabapentin 600 mg PO HS 07/22/19 Olanzapine [Zyprexa] 10 mg PO BID 07/22/19 Propranolol HCl 20 mg PO BID 07/22/19 Rosuvastatin Calcium [Crestor] 40 mg PO HS 07/22/19 Anemia: No Asthma: No Cardiac Disorders: (pericarditis) COPD: No Psychiatric Problems: Yes (Anxiety) - Immunization History Immunization Up to Date: Yes - Psycho Social/Smoking Cessation Hx Smoking History: Never smoked Have you smoked in the past 12 months: No Number of Cigarettes Smoked Daily: 0 Cigars Per Day: 0 Information on smoking cessation initiated: No Hx Alcohol Use: No Drug/Substance Use Hx: No Substance Use Type: None *Physical Exam - Vital Signs Last Vital Signs Temp Pulse Resp BP Pulse Ox 98.7 F 73 19 135/72 100 07/23/19 03:27 07/23/19 03:27 07/23/19 03:27 07/23/19 03:27 07/23/19 03:27 - Physical Exam General Appearance: Yes: Appropriately Dressed Respiratory/Chest: positive: Chest Tender, Lungs Clear, Normal Breath Sounds Cardiovascular: positive: Regular Rhythm, Regular Rate Gastrointestinal/Abdominal: positive: Normal Bowel Sounds, Soft. negative: Tender Extremity: positive: Normal Capillary Refill, Normal Inspection Integumentary: positive: Normal Color, Dry, Warm Neurologic: positive: professor of pathology II-XII NML intact, Fully Oriented, Alert Heart Score/ECG Review - History History: Slightly suspicious - Electrocardiogram EKG: Normal - Age Age: 45-65 - Risk Factors Risk Factors Heart Score: Yes Hx Hypercholesterolemia, Yes Hx Hypertension Based on the list above the patient has:: 1-2 risk factors - Troponin Troponin: </= normal limit - Score Heart Score - Total: 2 - ECG Intrepretation Rhythm: Regular Rhythm ED Treatment Course - LABORATORY CBC & Chemistry Diagram: 07/22/19 18:01 07/22/19 18:01 - ADDITIONAL ORDERS Additional order review: Laboratory Results 07/22/19 07/22/19 07/22/19 21:22 21:22 21:22 PT with INR 12.20 INR 1.03 PTT (Actin FS) 31.3 D-Dimer 570 H Sodium Potassium Chloride Carbon Dioxide Anion Gap BUN Creatinine Est GFR (CKD-EPI)AfAm Est GFR (CKD-EPI)NonAf Random Glucose Calcium Magnesium Total Bilirubin AST ALT Alkaline Phosphatase Creatine Kinase Troponin I C-Reactive Protein B-Natriuretic Peptide Total Protein Albumin Urine Color Yellow Urine Appearance Clear Urine pH 6.0 Ur Specific [place] 1.019 Urine Protein Negative Urine Glucose (UA) Negative Urine Ketones Negative Urine Blood Negative Urine Nitrite Negative Urine Bilirubin Negative Urine Urobilinogen 0.2 Ur Leukocyte Esterase Negative 07/22/19 07/22/19 18:01 18:01 PT with INR INR PTT (Actin FS) D-Dimer Sodium 139 Potassium 3.9 Chloride 104 Carbon Dioxide 26 Anion Gap 9 BUN 14.5 Creatinine 0.9 Est GFR (CKD-EPI)AfAm 116.65 Est GFR (CKD-EPI)NonAf 100.64 Random Glucose 91 Calcium 9.2 Magnesium 2.1 Total Bilirubin 0.5 AST 22 ALT 40 Alkaline Phosphatase 83 Creatine Kinase 143 Troponin I < 0.02 C-Reactive Protein 0.7 H B-Natriuretic Peptide 23.8 Total Protein 8.3 H Albumin 3.8 Urine Color Urine Appearance Urine pH Ur Specific [place] Urine Protein Urine Glucose (UA) Urine Ketones Urine Blood Urine Nitrite Urine Bilirubin Urine Urobilinogen Ur Leukocyte Esterase 07/22/19 18:01 RBC 4.32 MCV 95.4 MCHC 34.3 RDW 14.1 MPV 8.5 Neutrophils % 54.1 Lymphocytes % 29.4 D Monocytes % 13.6 H Eosinophils % 2.0 Basophils % 0.9 - RADIOLOGY Radiology Studies Ordered: Category Date Time Status CHEST CTA [CT] Stat CT Scan 07/22/19 22:[address] WITHOUT CONTRAST [CT] Stat CT Scan 07/22/19 19:59 Completed - Medications Given in the ED: ED Medications Discontinued Medications Generic Name Dose Route Start Last Admin Trade Name Freq PRN Reason Stop Dose Admin Aspirin 162 mg 07/23/19 01:14 07/23/19 03:27 Asa - PO 07/23/19 01:15 162 mg ONCE ONE Administration Medical Decision Making - Medical Decision Making 07/22/19 20:37 A: headache; chest pain P: labs EKG Cardiac BNP Discharge - Discharge Information Problems reviewed: Yes Clinical Impression/Diagnosis: Chest pain Qualifiers: Chest pain type: unspecified Qualified Code(s): R07.9 - Chest pain, unspecified Headache Qualifiers: Headache type: unspecified Headache chronicity pattern: acute headache Intractability: not intractable Qualified Code(s): R51 - Headache - Admission Yes - Follow up/Referral - Patient Discharge Instructions - Post Discharge Activity
--- NOTE | 2019-07-22 19:57 | PDOC ---
*Physical Exam - Vital Signs Last Vital Signs Temp Pulse Resp BP Pulse Ox 98.7 F 78 18 147/89 96 07/22/19 17:48 07/22/19 17:48 07/22/19 17:48 07/22/19 17:48 07/22/19 17:48 ED Treatment Course - LABORATORY CBC & Chemistry Diagram: 07/22/19 18:01 07/22/19 18:01 - ADDITIONAL ORDERS Additional order review: Laboratory Results 07/22/19 07/22/19 18:01 18:01 Sodium 139 Potassium 3.9 Chloride 104 Carbon Dioxide 26 Anion Gap 9 BUN 14.5 Creatinine 0.9 Est GFR (CKD-EPI)AfAm 116.65 Est GFR (CKD-EPI)NonAf 100.64 Random Glucose 91 Calcium 9.2 Magnesium 2.1 Total Bilirubin 0.5 AST 22 ALT 40 Alkaline Phosphatase 83 Creatine Kinase 143 Troponin I < 0.02 Total Protein 8.3 H Albumin 3.8 07/22/19 18:01 RBC 4.32 MCV 95.4 MCHC 34.3 RDW 14.1 MPV 8.5 Neutrophils % 54.1 Lymphocytes % 29.4 D Monocytes % 13.6 H Eosinophils % 2.0 Basophils % 0.9 Medical Decision Making - Medical Decision Making 07/22/19 19:56 Patient seen by the advanced practice provider under my supervision. Ancillary testing reviewed as necessary. I agree with plan as outlined by the advanced practice provider. Discharge - Discharge Information Problems reviewed: Yes Clinical Impression/Diagnosis: Chest pain Qualifiers: Chest pain type: unspecified Qualified Code(s): R07.9 - Chest pain, unspecified Headache Qualifiers: Headache type: unspecified Headache chronicity pattern: acute headache Intractability: not intractable Qualified Code(s): R51 - Headache - Follow up/Referral Referrals: Low Kruse MD [Primary Care Provider] - - Patient Discharge Instructions - Post Discharge Activity
[2019-07-22 21:43] LABS: INR 1.03 (0.83-1.09); PROTHROMBIN TIME (PATIENT) 12.2 SEC (9.7-13.0)
[2019-07-22 21:46] LABS: ACTIVATED PTT 31.3 SECONDS (25.2-36.5)
[2019-07-22] MEDS ORDERED: ASPIRIN 81 MG CHEWABLE TABLETS PO ONE (23:04)
[2019-07-23] MEDS ORDERED: ASPIRIN 81 MG CHEWABLE TABLETS PO ONE (01:14)
[2019-07-23 01:39] LABS: N-TERMINAL BNP 23.8 pg/ml (5-125)
--- NOTE | 2019-07-23 02:25 | HP ---
CHIEF COMPLAINT: chest pain PCP: Cardiology: Dr. Garcia HISTORY OF PRESENT ILLNESS: Patient is a 48 year old male with history of L4/L5 herniated disc, anxiety, pericarditis presents with complaint of chest pain. Patient endorses pain has been ongoing intermittently over past several months, however has worsened over the past two days. Symptoms occur as patient is resting. Described as sharp pain , diffuse but worst at left side chest, associated with shortness of breath. Patient attempted taking an Aspirin last night which was mildly palliative. However, the pain recurred this morning as patient was resting, prompting his presentation to ED. Patient was seen in 2017 for similar chest pain, and at that time was empirically treated for pericarditis with NSAID and Colchicine. However, patient states that his adhesive bandage machine operator did not continue the treatment as outpatient. Patient admits that he has discussed this long standing chest pain with his adhesive bandage machine operator who performed an exercise stress test earlier this month. He reports that he was told the study is normal by the technologist, however has not yet followed up the results with his adhesive bandage machine operator. Of note, patient denies experiencing chest pain during his exercise stress test. Patient endorses subjective fevers, shortness of breath, palpitations, nausea. 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 Lives with fiance. Independent in activities of daily living. Smoking: Denies Alcohol: Admits one - two glass of wine per week. Drugs: Denies Allergies No Known Allergies Allergy (Verified 07/22/19 17:46) HOME MEDICATIONS: Home Medications Medication Instructions Recorded Duloxetine HCl [Cymbalta] 20 mg PO BID 07/22/19 Gabapentin 600 mg PO HS 07/22/19 Olanzapine [Zyprexa] 10 mg PO BID 07/22/19 Propranolol HCl 20 mg PO BID 07/22/19 Rosuvastatin Calcium [Crestor] 40 mg PO HS 07/22/19 REVIEW OF SYSTEMS CONSTITUTIONAL: Admits: subjective fevers, generalized weakness. Absent: chills, diaphoresis, malaise, loss of appetite, weight change HEENT: Absent: rhinorrhea, nasal congestion, throat pain, throat swelling, difficulty swallowing, mouth swelling, ear pain, eye pain, visual changes CARDIOVASCULAR: Admits; chest pain, palpitations. Absent: syncope, irregular heart rate, lightheadedness, peripheral edema RESPIRATORY: Absent: cough, shortness of breath, dyspnea with exertion, orthopnea, wheezing, stridor, hemoptysis GASTROINTESTINAL: Absent: abdominal pain, abdominal distension, nausea, vomiting, diarrhea, constipation, melena, hematochezia GENITOURINARY: Absent: dysuria, frequency, urgency, hesitancy, hematuria, flank pain, genital pain MUSCULOSKELETAL: Absent: myalgia, arthralgia, joint swelling, back pain, neck pain SKIN: Absent: rash, itching, pallor HEMATOLOGIC/IMMUNOLOGIC: Absent: easy bleeding, easy bruising, lymphadenopathy, frequent infections ENDOCRINE: Absent: unexplained weight gain, unexplained weight loss, heat intolerance, cold intolerance NEUROLOGIC: Absent: headache, focal weakness or paresthesias, dizziness, unsteady gait, seizure, mental status changes, bladder or bowel incontinence PSYCHIATRIC: Absent: anxiety, depression, suicidal or homicidal ideation, hallucinations. PHYSICAL EXAMINATION Vital Signs - 24 hr 07/22/19 07/23/19 17:48 01:35 Temperature 98.7 F Pulse Rate 78 Pulse Rate [ 87 Left Radial] Respiratory 18 18 Rate Blood Pressure 147/89 Blood Pressure 127/76 [Left Arm] O2 Sat by Pulse 96 96 Oximetry (%) GENERAL: The patient is awake, alert, and fully oriented, in no acute distress. HEAD: Normocephalic, atraumatic. EYES: PERRL, extraocular movements intact, sclera anicteric, conjunctiva clear. ENT: Oropharynx clear, without erythema or exudates. Moist mucous membranes. NECK: Trachea midline, full range of motion. Supple without lymphadenopathy. LUNGS: Breath sounds equal, clear to auscultation bilaterally. No wheezes, no crackles. No accessory muscle use. HEART: Regular rate and rhythm. S1, S2 without murmur, rub or gallop. Chest pain reproducible upon palpation. ABDOMEN: Soft, nondistended, nontender to light and deep palpation x4 quadrants. No rebound tenderness, no guarding. Normoactive bowel sounds x4 quadrants. No hepatosplenomegaly, no masses appreciated. EXTREMITIES: 2+ radial, dorsalis pedis pulses bilaterally. Warm, well-perfused. No lower extremity edema bilaterally. NEUROLOGICAL: Cranial nerves II through XII grossly intact. Normal speech. No gross focal deficits. PSYCH: Normal mood, normal affect upon my encounter. SKIN: Warm, dry. Laboratory Results - last 24 hr 07/22/19 07/22/19 07/22/19 18:01 18:01 18:01 WBC 6.0 RBC 4.32 Hgb 14.1 Hct 41.1 MCV 95.4 MCH 32.7 MCHC 34.3 RDW 14.1 Plt Count 293 MPV 8.5 Absolute Neuts (auto) 3.3 Neutrophils % 54.1 Lymphocytes % 29.4 D Monocytes % 13.6 H Eosinophils % 2.0 Basophils % 0.9 Nucleated RBC % 0 ESR PT with INR INR PTT (Actin FS) D-Dimer Sodium 139 Potassium 3.9 Chloride 104 Carbon Dioxide 26 Anion Gap 9 BUN 14.5 Creatinine 0.9 Est GFR (CKD-EPI)AfAm 116.65 Est GFR (CKD-EPI)NonAf 100.64 Random Glucose 91 Calcium 9.2 Magnesium 2.1 Total Bilirubin 0.5 AST 22 ALT 40 Alkaline Phosphatase 83 Creatine Kinase 143 Troponin I < 0.02 C-Reactive Protein 0.7 H B-Natriuretic Peptide 23.8 Total Protein 8.3 H Albumin 3.8 07/22/19 07/22/19 07/22/19 18:01 21:22 21:22 WBC RBC Hgb Hct MCV MCH MCHC RDW Plt Count MPV Absolute Neuts (auto) Neutrophils % Lymphocytes % Monocytes % Eosinophils % Basophils % Nucleated RBC % ESR 18 H PT with INR 12.20 INR 1.03 PTT (Actin FS) 31.3 D-Dimer 570 H Sodium Potassium Chloride Carbon Dioxide Anion Gap BUN Creatinine Est GFR (CKD-EPI)AfAm Est GFR (CKD-EPI)NonAf Random Glucose Calcium Magnesium Total Bilirubin AST ALT Alkaline Phosphatase Creatine Kinase Troponin I C-Reactive Protein B-Natriuretic Peptide Total Protein Albumin ASSESSMENT/PLAN: Patient is a 48 year old male with history of L4/L5 herniated disc, anxiety, pericarditis presents with complaint of chest pain. Atypical chest pain -Reproducible upon palpation; likely secondary to musculoskeletal etiology. Will begin Iboprofen 600mg PO TID. -Patient was empirically treated for pericarditis in the past, however appears his current adhesive bandage machine operator has not continued the treatment. Will hold pending cardiology evaluation (Dr. Anderson). Patient admits subjective fevers; will also obtain viral PCR, infleunza swab to evaluate for viral illness possibly preceding pericarditis. -Obtain outpatient stress test readings from his [employer] -Cardiac transthoracic ECHO to evaluate for pericarditis -CTA chest negative for PE -Cardiac Telemetry monitoring -Initial troponin 0,02. Will trend. Anxiety -Cotninue home Cymbalta, Propranolol, Olanzapine Hyperlipidemia -Continue home Rosuvastatin Peripheral neuropathy -Continue home Gabapentin FEN -No IV fluids indicated -Follow BMP -Sodium modified diet Prophylaxis -SCDs bilateral lower extremities. Early ambulation Disposition -Telemetry observation Visit type - Emergency Visit Emergency Visit: Yes ED Registration Date: 07/23/19 Care time: The patient presented to the Emergency Department on the above date and was hospitalized for further evaluation of their emergent condition. - New Patient This patient is new to me today: Yes Date on this admission: 07/23/19 - Critical Care Critical Care patient: No ATTENDING PHYSICIAN STATEMENT I saw and evaluated the patient. I reviewed the resident's note and discussed the case with the resident. I agree with the resident's findings and plan as documented. SUBJECTIVE: OBJECTIVE: ASSESSMENT AND PLAN:
[2019-07-23 02:30] LABS: URINE APPEARANCE CLEAR; URINE BILIRUBIN NEGATIVE (NEGATIVE); URINE COLOR YELLOW; URINE GLUCOSE (UA) NEGATIVE (NEGATIVE); URINE KETONE NEGATIVE (NEGATIVE); URINE LEUK ESTERASE NEGATIVE (NEGATIVE); URINE NITRITE NEGATIVE (NEGATIVE); URINE PROTEIN NEGATIVE (NEGATIVE); URINE UROBILINOGEN 0.2 mg/dL (0.2-1.0)
[2019-07-23] MEDS ORDERED: ASPIRIN 81 MG CHEWABLE TABLETS ONE (03:21)
--- NOTE | 2019-07-23 04:06 | PN ---
Teaching Attending Note Name of Resident: Frandy Worthy ATTENDING PHYSICIAN STATEMENT I saw and evaluated the patient. I reviewed the resident's note and discussed the case with the resident. I agree with the resident's findings and plan as documented. SUBJECTIVE: 48-year-old male with history of L4/L5 herniated disc, pericarditis diagnosed in 2017, chronic back pain, recent cardiac stress test performed 2 days ago, hyperlipidemia, complains of midsternal chest pain, sharp in quality that is worse with movement for the past 1 to 2 days. Reports subjective fevers and chills as well, no sick contacts or recent travels. No significant shortness of breath reported. Patient believes that his recent cardiac stress test was within normal limits however has not received an official report from his vp project. OBJECTIVE: Last Vital Signs Temp Pulse Resp BP Pulse Ox 98.7 F 73 19 135/72 100 07/23/19 03:27 07/23/19 03:27 07/23/19 03:27 07/23/19 03:27 07/23/19 03:27 On physical exam patient was a comfortably appearing 40-year-old male. No JVD appreciated, S1, S2 normal rate and rhythm with no murmurs gallops or rubs. Chest was clear to auscultation bilaterally, abdomen is soft nontender with normal bowel sounds. No lower extremity edema appreciated. Abnormal Lab Results 07/22/19 07/22/19 07/22/19 18:01 18:01 18:01 Monocytes % 13.6 H ESR 18 H D-Dimer C-Reactive Protein 0.7 H Total Protein 8.3 H 07/22/19 21:22 Monocytes % ESR D-Dimer 570 H C-Reactive Protein Total Protein EKG appreciated, normal sinus rhythm with no acute ischemic changes appreciated. Appears to be roughly unchanged from EKG from 03/2017. CTA of chest was appreciated. No PE or dissection. No pericardial effusion. Trace right pleural effusion noted and mild bibasilar atelectasis. No fractures identified. ASSESSMENT AND PLAN: 48-year-old male with chest pain. PE was ruled out, aortic dissection was ruled out. No pericardial effusion to suggest pericarditis however noted to be diagnosed with pericarditis in the past. ESR Mildly elevated and not consistent with pericarditis clinical history suggest possible pericarditis so we will treat empirically with ibuprofen especially in light of past history. Less likely to be ACS as patient allegedly had normal cardiac stress test 2 days ago. Telemetry observation Ibuprofen 800 mg stat and then as needed if chest pain Trend troponins Transthoracic echo Cardiology evaluation Statin Monitor vital signs closely Flu swab Obtain medical records from vp project who performed cardiac stress test 2 days ago DVT prophylaxis with SCDs
[2019-07-23] MEDS ORDERED: IBUPROFEN 600 MG TABLET (FP) PO SCH (04:15)
[2019-07-23] MEDS ORDERED: IBUPROFEN 600 MG TABLET (FP) PO ONE (04:20)
[2019-07-23 07:27] LABS: HEMATOCRIT 37.7 % (35.4-49); MCH 32.5 pg (25.7-33.7); MCHC 34.5 g/dl (32.0-35.9); MEAN CELL VOLUME 94.1 fl (80-96); MEAN PLT VOLUME 8.4 fl (7.5-11.1); PLATELET COUNT 273 K/MM3 (134-434); RBC 4.01 M/mm3 (4.00-5.60); RDW 13.7 % (11.9-15.9); WHITE BLOOD COUNT 5.9 K/mm3 (4.0-10.0)
[2019-07-23 07:56] LABS: ANION GAP 7 MMOL/L (8-16); BLOOD UREA NITROGEN 13.2 mg/dL (7-18); CALCIUM 8.9 mg/dL (8.5-10.1); CHLORIDE 106 mmol/L (98-107); CO2 27 mmol/L (21-32); CREATININE 0.9 mg/dL (0.55-1.3); GLUCOSE,RANDOM 98 mg/dL (74-106); MAGNESIUM 2.1 mg/dL (1.8-2.4); PHOSPHOROUS 3.3 mg/dL (2.5-4.9); POTASSIUM 3.7 mmol/L (3.5-5.1); SODIUM 140 mmol/L (136-145)
[2019-07-23] MEDS: IBUPROFEN 400 MG TABLET (FP) PO SCH ×3 (09:04→22:00)
--- NOTE | 2019-07-23 10:12 | PN ---
Progress Note (short form) - Note Progress Note: Events noted Had chest pressure since Sunday-- took an ASA at that time. Again had chest pressure yesterday m radiating to both sides of jaw and to the back SOB during the episode No dizziness Chest pain subsided when he came to ER He had a stress test with DR Lynn Triana- a few days ago-- spoke with PMD Dr Kruse for the results-- he had an exercise stress test-- negative for ischemia Vital Signs - 24 hr 07/22/19 07/23/19 07/23/19 17:48 01:35 03:27 Temperature 98.7 F 98.7 F Pulse Rate 78 Pulse Rate [ 87 73 Left Radial] Respiratory 18 18 19 Rate Blood Pressure 147/89 Blood Pressure 127/76 135/72 [Left Arm] O2 Sat by Pulse 96 96 100 Oximetry (%) 07/23/19 07/23/19 05:15 06:00 Temperature 99.0 F 97.8 F Pulse Rate 75 Pulse Rate [ 87 Left Radial] Respiratory 16 15 Rate Blood Pressure 107/57 L Blood Pressure 143/85 [Left Arm] O2 Sat by Pulse 100 Oximetry (%) Current Medications Generic Name Dose Route Start Last Admin Trade Name Freq PRN Reason Stop Dose Admin Duloxetine HCl 20 mg 07/23/19 10:00 Cymbalta - PO BID JAYNA Gabapentin 600 mg 07/23/19 22:00 Neurontin - PO HS JAYNA Ibuprofen 800 mg 07/23/19 08:00 07/23/19 09:04 Motrin - PO Not Given TID JAYNA Olanzapine 2.5 mg 07/23/19 22:00 Zyprexa - PO HS JAYNA Propranolol HCl 10 mg 07/23/19 10:00 Inderal - PO BID JAYNA Rosuvastatin Calcium 10 mg 07/23/19 22:00 Crestor - PO HS JAYNA Laboratory Results - last 24 hr 07/22/19 07/22/19 07/22/19 18:01 18:01 18:01 WBC 6.0 RBC 4.32 Hgb 14.1 Hct 41.1 MCV 95.4 MCH 32.7 MCHC 34.3 RDW 14.1 Plt Count 293 MPV 8.5 Absolute Neuts (auto) 3.3 Neutrophils % 54.1 Lymphocytes % 29.4 D Monocytes % 13.6 H Eosinophils % 2.0 Basophils % 0.9 Nucleated RBC % 0 ESR PT with INR INR PTT (Actin FS) D-Dimer Sodium 139 Potassium 3.9 Chloride 104 Carbon Dioxide 26 Anion Gap 9 BUN 14.5 Creatinine 0.9 Est GFR (CKD-EPI)AfAm 116.65 Est GFR (CKD-EPI)NonAf 100.64 Random Glucose 91 Calcium 9.2 Phosphorus Magnesium 2.1 Total Bilirubin 0.5 AST 22 ALT 40 Alkaline Phosphatase 83 Creatine Kinase 143 Troponin I < 0.02 C-Reactive Protein 0.7 H B-Natriuretic Peptide 23.8 Total Protein 8.3 H Albumin 3.8 Urine Color Urine Appearance Urine pH Ur Specific [place] Urine Protein Urine Glucose (UA) Urine Ketones Urine Blood Urine Nitrite Urine Bilirubin Urine Urobilinogen Ur Leukocyte Esterase 07/22/19 07/22/19 07/22/19 18:01 21:22 21:22 WBC RBC Hgb Hct MCV MCH MCHC RDW Plt Count MPV Absolute Neuts (auto) Neutrophils % Lymphocytes % Monocytes % Eosinophils % Basophils % Nucleated RBC % ESR 18 H PT with INR 12.20 INR 1.03 PTT (Actin FS) 31.3 D-Dimer 570 H Sodium Potassium Chloride Carbon Dioxide Anion Gap BUN Creatinine Est GFR (CKD-EPI)AfAm Est GFR (CKD-EPI)NonAf Random Glucose Calcium Phosphorus Magnesium Total Bilirubin AST ALT Alkaline Phosphatase Creatine Kinase Troponin I C-Reactive Protein B-Natriuretic Peptide Total Protein Albumin Urine Color Urine Appearance Urine pH Ur Specific [place] Urine Protein Urine Glucose (UA) Urine Ketones Urine Blood Urine Nitrite Urine Bilirubin Urine Urobilinogen Ur Leukocyte Esterase 07/22/19 07/23/19 07/23/19 21:22 06:46 06:46 WBC 5.9 RBC 4.01 Hgb 13.0 Hct 37.7 MCV 94.1 MCH 32.5 MCHC 34.5 RDW 13.7 Plt Count 273 MPV 8.4 Absolute Neuts (auto) Neutrophils % Lymphocytes % Monocytes % Eosinophils % Basophils % Nucleated RBC % ESR PT with INR INR PTT (Actin FS) D-Dimer Sodium 140 Potassium 3.7 Chloride 106 Carbon Dioxide 27 Anion Gap 7 L BUN 13.2 Creatinine 0.9 Est GFR (CKD-EPI)AfAm 116.65 Est GFR (CKD-EPI)NonAf 100.64 Random Glucose 98 Calcium 8.9 Phosphorus 3.3 Magnesium 2.1 Total Bilirubin AST ALT Alkaline Phosphatase Creatine Kinase Troponin I < 0.02 C-Reactive Protein B-Natriuretic Peptide Total Protein Albumin Urine Color Yellow Urine Appearance Clear Urine pH 6.0 Ur Specific [place] 1.019 Urine Protein Negative Urine Glucose (UA) Negative Urine Ketones Negative Urine Blood Negative Urine Nitrite Negative Urine Bilirubin Negative Urine Urobilinogen 0.2 Ur Leukocyte Esterase Negative S1 S2 RRR Lungs clear Abd- soft, NT chest wall not tender No edema PLAN Cardiac enzymes negative CTA chest-- negative for PE-- prelim report check lipid panel Echo ordered cardiology eval in house Problem List - Problems (1) Chest pain Code(s): R07.9 - CHEST PAIN, UNSPECIFIED Qualifiers: Chest pain type: unspecified Qualified Code(s): R07.9 - Chest pain, unspecified (2) Back pain Code(s): M54.9 - DORSALGIA, UNSPECIFIED Qualifiers: Back pain location: low back pain Chronicity: acute Back pain laterality : midline Sciatica presence: with sciatica Sciatica laterality: sciatica of left side Qualified Code(s): M54.42 - Lumbago with sciatica, left side
--- NOTE | 2019-07-23 10:43 | EKG ---
Test Reason : Blood Pressure : / mmHG Vent. Rate : 081 BPM Atrial Rate : 081 BPM P-R Int : 156 ms QRS Dur : 090 ms QT Int : 370 ms P-R-T Axes : 063 027 033 degrees QTc Int : 429 ms NORMAL SINUS RHYTHM POSSIBLE LEFT ATRIAL ENLARGEMENT BORDERLINE ECG WHEN COMPARED WITH ECG OF 18-MAR-2017 00:04, NO SIGNIFICANT CHANGE WAS FOUND Confirmed by Tello Santana MD ([id number]) on 07/23/2019 10:42:55 AM Referred By: Confirmed By:Tello Santana MD
[2019-07-23] MEDS: DULoxetine HCL 20 MG CAPSULE.DR PO SCH ×2 (10:59→22:01)
[2019-07-23 12:16] LABS: CHOLESTEROL 235 mg/dL (50-200); HDL CHOLESTEROL 38 mg/dL (40-60); LDL CHOLESTEROL (ONLY SJRH) 166 mg/dL (5-100); TRIGLYCERIDES 135 mg/dL (0-150)
--- NOTE | 2019-07-23 14:26 | ECHO ---
Version: 1 Name: CARLOS CALLEJAS Exam: Adult Echocardiogram Study Date: 07/23/2019, 11:49 AM Age: 48 Years MMode/2D Measurements & Calculations IVSd: 1.00 cm LVIDs: 4.3 cm LVIDd: 5.4 cm LVPWd: 1.01 cm LAV (MOD-bp): 68.9 ml ACS: 2.03 cm Ao root diam: 3.3 cm LVOT diam: 2.04 cm LA dimension: 3.5 cm Doppler Measurements & Calculations MV E max jose: 60.1 cm/sec Med E/e': 7.4 MV A max jose: 46.6 cm/sec Med Peak E' Jose: 8.2 cm/sec MV E/A: 1.29 Lat E/e': 6.2 Lat Peak E' Jose: 9.7 cm/sec Ao max P.4 mmHg SOBEIDA(I,D): 3.0 cm Ao mean P.1 mmHg LV V1 mean: 69.0 cm/sec Ao V2 max: 126.2 cm/sec LV V1 mean P.29 mmHg TR max jose: 238.0 cm/sec TR max P.8 mmHg Left Ventricle The left ventricular size, thickness and function are normal. Ejection Fraction = 60%. The transmitr al spectral Doppler flow pattern is normal for age. Right Ventricle The right ventricle is normal in size and function. Atria Normal left and right atrial size and function. Mitral Valve The mitral valve is normal. There is mild mitral regurgitation. Tricuspid Valve The tricuspid valve is normal in structure and function. There is trace tricuspid regurgitation. Aortic Valve The aortic valve is normal in structure and function. Mild aortic regurgitation. Pulmonic Valve The pulmonic valve is not well seen, but is grossly normal. Great Vessels The aortic root is normal size. Normal aortic arch, descending and ascending aorta. Pericardium/Pleura There is no pericardial effusion. Summary Statements The left ventricular size, thickness and function are normal Ejection Fraction = 60%. The transmitral spectral Doppler flow pattern is normal for age. The right ventricle is normal in size and function. Normal left and right atrial size and function. The mitral valve is normal. There is mild mitral regurgitation. The tricuspid valve is normal in structure and function. There is trace tricuspid regurgitation. The aortic valve is normal in structure and function. Mild aortic regurgitation. The pulmonic valve is not well seen, but is grossly normal. The aortic root is normal size. Normal aortic arch, descending and ascending aorta There is no pericardial effusion. Corey Bhardwaj 07/23/2019, 2:25 PM Ordering Physician: JANETH PAREDES Referring Physician: JANETH PAREDES Performed By: Winter Gasca
--- NOTE | 2019-07-23 15:06 | CON.CARD ---
Consult Consult Specialty:: Cardiology - History of Present Illness History of Present Illness: 48-year-old male with history of L4/L5 herniated disc, pericarditis diagnosed in 2017, chronic back pain, recent cardiac stress test performed 2 days ago, hyperlipidemia, complains of midsternal chest pain, sharp in quality that is worse with movement for the past 1 to 2 days. Reports subjective fevers and chills as well, no sick contacts or recent travels. No significant shortness of breath reported. 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 - History Source History Provided By: Patient, Medical Record - Past Medical History Cardio/Vascular: Yes: Hyperlipdemia - Alcohol/Substance Use Hx Alcohol Use: No - Smoking History Smoking history: Never smoked Have you smoked in the past 12 months: No Aproximately how many cigarettes per day: 0 Home Medications - Allergies Allergies/Adverse Reactions: Allergies Allergy/AdvReac Type Severity Reaction Status Date / Time No Known Allergies Allergy Verified 07/22/19 17:46 - Home Medications Home Medications: Ambulatory Orders Duloxetine HCl [Cymbalta] 20 mg PO BID 07/22/19 Gabapentin 600 mg PO HS 07/22/19 Olanzapine [Zyprexa] 2.5 mg PO HS 07/22/19 Propranolol HCl 10 mg PO BID 07/22/19 Rosuvastatin Calcium [Crestor] 10 mg PO HS 07/22/19 Review of Systems - Review of Systems Constitutional: reports: No Symptoms Eyes: reports: No Symptoms HENT: reports: No Symptoms Neck: reports: No Symptoms Cardiovascular: reports: Chest Pain Respiratory: reports: No Symptoms Gastrointestinal: reports: No Symptoms Genitourinary: reports: No Symptoms Breasts: reports: No Symptoms Reported Musculoskeletal: reports: No Symptoms Integumentary: reports: No Symptoms Neurological: reports: No Symptoms Endocrine: reports: No Symptoms Hematology/Lymphatic: reports: No Symptoms Psychiatric: reports: No Symptoms Vital Signs: Vital Signs Temperature 98.1 F 07/23/19 11:47 Pulse Rate 70 07/23/19 11:47 Respiratory Rate 18 07/23/19 11:47 Blood Pressure 119/72 07/23/19 11:47 O2 Sat by Pulse Oximetry (%) 97 07/23/19 11:47 Constitutional: Yes: Well Nourished, No Distress, Calm Eyes: Yes: WNL, Conjunctiva Clear, EOM Intact HENT: Yes: WNL, Atraumatic, Normocephalic Neck: Yes: WNL, Supple, Trachea Midline Respiratory: Yes: WNL, Regular, CTA Bilaterally Gastrointestinal: Yes: WNL, Normal Bowel Sounds Renal/: Yes: WNL Cardiovascular: Yes: WNL, Regular Rate and Rhythm Heart Sounds: Yes: S1, S2 Musculoskeletal: Yes: WNL Extremities: Yes: WNL Integumentary: Yes: WNL Neurological: Yes: WNL, Alert, Oriented ...Motor Strength: WNL Psychiatric: Yes: WNL, Alert, Oriented - Other Data Labs, Other Data: CBC, BMP 07/23/19 06:46 07/23/19 06:46 INR, PTT INR 1.03 (0.83-1.09) 07/22/19 21:22 Troponin, BNP 07/22/19 07/22/19 07/23/19 18:01 18:01 06:46 Troponin I < 0.02 < 0.02 B-Natriuretic Peptide 23.8 Troponin, BNP 07/22/19 07/22/19 07/23/19 18:01 18:01 06:46 Troponin I < 0.02 < 0.02 B-Natriuretic Peptide 23.8 Imaging - Results Chest X-ray: Image Reviewed (atelectasis) EKG: Image Reviewed (sr ? LAE o/ wnl) Problem List - Problems (1) Chest pain Code(s): R07.9 - CHEST PAIN, UNSPECIFIED Qualifiers: Chest pain type: unspecified Qualified Code(s): R07.9 - Chest pain, unspecified (2) Headache Code(s): R51 - HEADACHE Qualifiers: Headache type: unspecified Headache chronicity pattern: acute headache Intractability: not intractable Qualified Code(s): R51 - Headache (3) Back pain Code(s): M54.9 - DORSALGIA, UNSPECIFIED Qualifiers: Back pain location: low back pain Chronicity: acute Back pain laterality : midline Sciatica presence: with sciatica Sciatica laterality: sciatica of left side Qualified Code(s): M54.42 - Lumbago with sciatica, left side (4) Herniated disc Code(s): [id number] - (5) Pericarditis Code(s): I31.9 - DISEASE OF PERICARDIUM, UNSPECIFIED (6) Viral upper respiratory illness Code(s): J06.9 - ACUTE UPPER RESPIRATORY INFECTION, UNSPECIFIED; B97.89 - OTH VIRAL AGENTS THE CAUSE OF DISEASES CLASSD [id number] Assessment/Plan 48-year-old male with history of L4/L5 herniated disc, pericarditis diagnosed in 2017, chronic back pain, recent cardiac stress test performed 2 days ago, hyperlipidemia, complains of midsternal chest pain, sharp in quality that is worse with movement for the past 1 to 2 days. ce neg CTA neg as per chart for RE/dissection echo nl ef Plan ; Increase Lipitor to 80 keep ldl below 100 obtain records of recent stress tets dvt plx telemetry asa
[2019-07-23] MEDS ORDERED: IBUPROFEN 400 MG TABLET (FP) PO ONE (15:11)
[2019-07-23] MEDS ORDERED: ROSUVASTATIN CA 10 MG TABLET (FP) PO SCH (22:00)
[2019-07-23] MEDS ORDERED: OLANZAPINE 2.5 MG PO SCH (22:00)
[2019-07-23] MEDS ORDERED: PATIENT'S OWN MEDICATION (NON-FORMULARY) (Gabapentin [Gabapentin] 600 MG) PO SCH (22:00)
[2019-07-23] MEDS ORDERED: ATORVASTATIN CA 40 MG TABLET (FP) PO SCH (22:00)
[2019-07-23] MEDS ORDERED: ATORVASTATIN CA 80 MG TABLET (FP) PO SCH (22:00)
[2019-07-23] MEDS ORDERED: OLANZapine 2.5 MG TABLET PO SCH (22:00)
[2019-07-23] MEDS ORDERED: GABAPENTIN 300 MG CAPSULE PO SCH (22:00)
[2019-07-24] MEDS: IBUPROFEN 400 MG TABLET (FP) PO SCH (06:55)
[2019-07-24] MEDS: DULoxetine HCL 20 MG CAPSULE.DR PO SCH (10:32)
[2019-07-24 10:33] VITALS: BP 126/87; PULSE 61; TEMP 97.5
--- NOTE | 2019-07-24 10:48 | DS ---
Physical Examination Vital Signs: Vital Signs Temperature 97.5 F L 07/24/19 10:00 Pulse Rate 61 07/24/19 10:00 Respiratory Rate 18 07/24/19 10:00 Blood Pressure 126/87 07/24/19 10:00 O2 Sat by Pulse Oximetry (%) 96 07/23/19 20:35 Constitutional: Yes: No Distress, Calm Cardiovascular: Yes: Regular Rate and Rhythm Respiratory: Yes: CTA Bilaterally Gastrointestinal: Yes: Normal Bowel Sounds, Soft. 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
--- NOTE | 2019-07-24 15:15 | EKG ---
Test Reason : Blood Pressure : / mmHG Vent. Rate : 060 BPM Atrial Rate : 060 BPM P-R Int : 162 ms QRS Dur : 088 ms QT Int : 414 ms P-R-T Axes : 058 032 038 degrees QTc Int : 414 ms NORMAL SINUS RHYTHM NORMAL ECG WHEN COMPARED WITH ECG OF 22-JUL-2019 17:47, NO SIGNIFICANT CHANGE WAS FOUND Confirmed by NEAL OJEDA MD ([id number]) on 07/24/2019 3:15:01 PM Referred By: Confirmed By:NEAL OJEDA MD
== END 2019-07-24 11:47 | disposition home or self-care (01) ==
LOC: JER 17:37 → JERBED 07-23 01:14 → INTOOBSV 07-23 01:14 → JERBED 07-23 09:36
PROVIDERS: ADMIT Internal Medicine; ATTEND Internal Medicine
DX: R07.89 Other chest pain (principal); R51 Headache; E78.5 Hyperlipidemia, unspecified; F41.9 Anxiety disorder, unspecified; G62.9 Polyneuropathy, unspecified; M54.42 Lumbago with sciatica, left side; Z86.79 Personal history of other diseases of the circulatory system
CPT/HCPCS: 36415; 70450-TC; 71046-TC-FY; 71275-TC; 80048; 80053; 80061; 81003; 82550; 83721; 83735; 83880; 84100; 84443; 84484; 85025; 85027; 85379; 85610; 85651; 85730; 86140; 87633; 93005; 93010; 93306-TC; 99285-25; G0378; Q9967

== ENCOUNTER 2024-03-24 04:23 | Day surgery (SDC) | payer OTHER, BC ==
[2024-03-19 17:46] VITALS: BMI 25.0
[2024-03-24] MEDS ORDERED: MIDAZOLAM HCL 2 MG/2 ML SINGLE DOSE VIAL ONE (17:06)
[2024-03-24] MEDS ORDERED: ONDANSETRON 4 MG/2 ML VIAL ONE (17:23)
[2024-03-24] MEDS ORDERED: DEXAMETHASONE SOD PHOSPHATE 4 MG/1 ML VIAL ONE (17:26)
[2024-03-24 19:36] VITALS: BP 133/84; PULSE 76; RESP 20; TEMP 97.2
== END 2024-03-24 19:40 | disposition home or self-care (01) ==
LOC: JASU-SURG 04:23
PROVIDERS: ATTEND Urology
PROC: 0TF4XZZ Fragmentation in Left Kidney Pelvis, External Approach (ICD-10-PCS; principal; 2024-03-24 17:30)
DX: N20.0 Calculus of kidney (principal)